=== PATIENT | female | born 1930 | race Caucasian/White ===

== ENCOUNTER 2018-09-24 10:40 | Inpatient (IN) | payer MEDICAID, MEDICARE ==
[~2018-09-24] VITALS: Ht 160 cm; Wt 80.3 kg
[2018-09-24 10:46] VITALS: BP 183/79
--- NOTE | 2018-09-24 10:50 | NUR ---
88 yo f bib family w/ c/o bl neck/lymph node/neck, and entire right sided pain x 5 days. pt reports dizzines, denies n/v today. pt reports feeling very hot on the inside, but does not present w/ fever at this time. no med taken. vss, bed down, bedrail up x 1, er md aware and notified ofpt status. hx high cholestrol, htn rx metropolol 50 mg 1x daily, cipro 500 mg 2x day x 7 days just finished
[2018-09-24] MEDS ORDERED: NACL 0.9% 1,000 ML IV SCH (11:11)
--- NOTE | 2018-09-24 11:13 | NUR ---
Patient being evaluated by physician at bedside.
[2018-09-24] MEDS ORDERED: MORPHINE SULFATE 4 MG/ML SYR IVP ONE (11:15)
[2018-09-24] MEDS ORDERED: CYCLOBENZAPRINE 10 MG TAB PO ONE (11:15)
[2018-09-24 11:45] LABS: BASOPHILS % (AUTO) 0.3 % (0.0-2.0); EOSINOPHILS % (AUTO) 0.3 % (0.0-4.0); HEMATOCRIT 43.7 % (36-48); HEMOGLOBIN 14.3 g/dL (12.0-16.0); LYMPHOCYTES # (AUTO) 1.3 K/uL (2.5-16.5); LYMPHOCYTES % (AUTO) 13.3 % (20.5-51.1); MEAN CORPUSCULAR HEMOGLOBIN 31 pg (27-31); MEAN CORPUSCULAR HGB CONC 33 g/dL (33-37); MEAN CORPUSCULAR VOLUME 94.5 fL (80-94); MONOCYTES # (AUTO) 0.7 K/uL (0.8-1.0); MONOCYTES % (AUTO) 6.9 % (1.7-9.3); NEUTROPHILS % (AUTO) 79.2 % (42.2-75.2); PLATELET COUNT (AUTO) 173 K/uL (140-450); RED BLOOD CELL COUNT(AUTO) 4.62 MIL/uL (4.20-5.40); RED CELL DISTRIBUTION WIDTH 12.7 % (11.6-13.7); WHITE BLOOD COUNT (AUTO) 10.2 K/uL (4.8-10.8)
[2018-09-24 11:51] LABS: ANION GAP 10.1 (8-16); CARBON DIOXIDE 27.5 mmol/L (21-32); CHLORIDE 106 mmol/L (98-107); CREATININE 0.7 mg/dL (0.6-1.3); GLUCOSE 109 mg/dL (74-106); POTASSIUM 3.6 mmol/L (3.5-5.1); SODIUM SERUM 140 mmol/L (136-145); UREA NITROGEN, BLOOD 12 mg/dL (7-18)
[2018-09-24 11:51] LABS: APPEARANCE,URINE CLEAR (CLEAR); BILIRUBIN,URINE NEGATIVE (NEGATIVE); BLOOD, URINE TRACE-I (NEGATIVE); COLOR,URINE YELLOW (YELLOW); LEUKOCYTE ESTERASE ,URINE NEGATIVE (NEGATIVE); NITRITE, URINE NEGATIVE (NEGATIVE); PH,URINE 5.5 (5.0-9.0); UGLUCOSE NEGATIVE (NEGATIVE)
[2018-09-24 11:57] LABS: ALBUMIN 3.4 g/dL (3.4-5.0); ASPARTATE AMINOTRANSFERASE 18 U/L (15-37); TOTAL BILIRUBIN 0.4 mg/dL (0.0-1.0)
[2018-09-24 12:28] LABS: RBC,URINE 0-5 (RARE) /HPF (0-5); WBC,URINE 0-5 (RARE) /HPF (0-5)
[2018-09-24] MEDS ORDERED: ONDANSETRON 4 MG/2 ML VIAL IM/IVP PRN (14:05)
[2018-09-24] MEDS ORDERED: ACETAMINOPHEN 325 MG TAB PO PRN (14:05)
[2018-09-24] MEDS ORDERED: LORazepam 2 MG/ML VIAL IM/IVP PRN (14:05)
[2018-09-24] MEDS ORDERED: ZOLPIDEM 5 MG TAB PO PRN (14:05)
[2018-09-24] MEDS ORDERED: DOCUSATE SODIUM 100 MG GELCAP PO PRN (14:05)
--- NOTE | 2018-09-24 14:43 | NUR ---
Patient will be admitted to care of . Admited to tele floor. Will go to room 120-b. Belongings list completed. Report to radha wilkins.
[2018-09-24 14:58] VITALS: BP 157/64
--- NOTE | 2018-09-24 14:58 | NUR ---
PATIENT ADMITTED FROM ER. PATIENT AWAKE, ALERT AND ORIENTED. PT IS AMBULATORY. NO S/S OF DISTRESS. PATIENT ON ROOM AIR. PATIENT REPORTS OF 3/10 NECK PAIN. PATIENT WAS MEDICATED IN ER. WILL CONTINUE TO MONITOR. NO C/O ABD PAIN AT THIS TIME. NO NAUSEA OR VOMITING. PATIENT PLACED ON TELE MONITORING. BED LOWERED WITH CALL LIGHT WITHIN REACH. WILL CONTINUE TO MONITOR
[2018-09-24] MEDS ORDERED: INSULIN LISPRO SLIDING SCALE 100 UNITS/ML VIAL SUBQ PRN (15:05)
[2018-09-24] MEDS ORDERED: DEXTROSE 50% 50 ML SYR IVP PRN (15:05)
[2018-09-24] MEDS ORDERED: MECLIZINE 25 MG TAB PO PRN (15:20)
[2018-09-24] MEDS ORDERED: METOPROLOL SUCCINATE 50 MG TABER PO SCH (15:27)
--- NOTE | 2018-09-24 15:27 | NUR ---
ORDERED TOPROL XL NOT GIVEN. PER DR MURRAY, PT CAN START HER BP MEDS TOMORROW. DR AWARE OF PATIENT'S LATEST BP
[2018-09-24 15:28] LABS: PHOSPHORUS 3.1 mg/dL (2.5-4.9); THYROID STIMULATING HORMONE 0.32 uIU/mL (0.34-3.74)
[2018-09-24] MEDS ORDERED: METOPROLOL 5 MG/5 ML VIAL IV SCH (15:30)
[2018-09-24] MEDS: NACL 0.9% 1,000 ML IV SCH (15:53)
[2018-09-24] MEDS: BLOOD GLUCOSE MONITORING 1 DEV DEV FS SCH ×2 (15:59→20:04)
[2018-09-24 16:00] VITALS: BP 138/48
--- NOTE | 2018-09-24 18:30 | NUR ---
PATIENT TOLERATED ORDERED DIET WELL. NO S/S OF DISTRESS NOTED
--- NOTE | 2018-09-24 19:27 | NUR ---
PATIENT REPORT GIVEN AT BEDSIDE. PATIENT ENDORSED IN STABLE CONDITION
--- NOTE | 2018-09-24 19:30 | NUR ---
RECEIVED PATIENT AWAKE RESTING ON BED. EXPLAINED PLAN OF CARE TO PATIENT AND FAMILY MEMBERS. CALL LIGHT WITHIN REACH. DENIES PAIN AT THIS TIME. EXPLAINED TO USE CALL LIGHT FOR ASSISTANCE. WILL CONTINUE TO MONITOR.
[2018-09-24] MEDS ORDERED: cloNIDine 0.1 MG TAB PO SCH (21:00)
--- NOTE | 2018-09-24 21:00 | NUR ---
BS TAKEN AND RECORDED. NO COVERAGE PER SLIDING SCALE. NO S/ S OF DISTRESS NOTED. CALL LIGHT WITHION REACH. WILL CONTINUE TO MONITOR.
[2018-09-24 21:15] VITALS: BP 138/63
[2018-09-25] VITALS: BP 147/60
--- NOTE | 2018-09-25 | NUR ---
V/S TAKEN AND RECORDED. PATIENT BACK TO SLEEP AND PLACE IN COMFORTABLE POSITION. ALL NEEDS ATTENDED. NO S/S OF DISTRESS NOTED. WILL CONTINUE TO MONITOR.
--- NOTE | 2018-09-25 02:00 | NUR ---
CHECKED PATIENT ASLEEP IN COMFORTABLE POSITION. NO S/S OF DISTRESS NOTED. CALL LIGHT WITHIN REACH. DENIES PAIN AT THIS TIME. WILL CONTINUE TO MONITOR.
[2018-09-25 04:00] VITALS: BP 143/64
--- NOTE | 2018-09-25 04:00 | NUR ---
V/S TAKEN AND RECORDED. NO S/S OF DISTRESS NOTED AT THIS TIME.CALL LIGHT WITHIN REACH.
[2018-09-25] MEDS: NACL 0.9% 1,000 ML IV SCH ×2 (06:42→22:14)
[2018-09-25] MEDS: BLOOD GLUCOSE MONITORING 1 DEV DEV FS SCH ×4 (06:43→20:03)
--- NOTE | 2018-09-25 07:25 | NUR ---
ENDORSEMENT GIVEN TO AM SHIFT NURSE AT BEDSIDE FOR CONTINUITY OF CARE. PATIENT IN STABLE CONDITION.
--- NOTE | 2018-09-25 07:26 | NUR ---
RECEIVED REPORT FROM PM NURSE AT BEDSIDE. PT LYING ON HER BED. PT AO X4, PRIMARILY SLOVAK SPEAKING. PT IS ON CCHO 60 GM DIET, HAS SMALL WOUND ON LEFT LEFT SANDOVAL. HAS IV ON LFT AC 22 G, IVF INFUSING WELL. PT IS ON FALL RISK, CAN AMBULATE TO RESTROOM WITH ASSIST. PLACED CALLLIGHT WITHIN PT REACH. ABDOMEN SOFT,NON-DISTENDED. PT COMPLAIN OF PAIN AT THE BACK OF NECK. NO SIGN OF DISTRESS NOTED. WILL CONTINUE TO MONITOR PT.
[2018-09-25 07:27] LABS: CHOL/HDL RATIO 3.3 (1-4.5)
[2018-09-25 08:05] VITALS: BP 161/74
[2018-09-25] MEDS: METOPROLOL SUCCINATE 50 MG TABER PO SCH (09:00)
[2018-09-25] MEDS: CYCLOBENZAPRINE 10 MG TAB PO SCH ×3 (09:00→17:21)
--- NOTE | 2018-09-25 09:05 | NUR ---
ADMINISTERED MEDS TO PT ORDERED. TOLERATED WELL. NO SIGN OF DISTRESS. PT RETURNED FROM X-RAY. INFORMED PT THAT MEDS WILL HELP WITH HER NECK PAIN. CALL LIGHT WITHIN PT REACH. INFORMED HER TO USE CALL LIGHT FOR ANY HELP. WILL CONTINUE TO MONITOR PT.
[2018-09-25 09:17] LABS: BASOPHILS % (AUTO) 0.3 % (0.0-2.0); EOSINOPHILS # (AUTO) 0.1 K/uL (0-0.4); HEMATOCRIT 42.1 % (36-48); HEMOGLOBIN 13.8 g/dL (12.0-16.0); LYMPHOCYTES # (AUTO) 1.5 K/uL (2.5-16.5); LYMPHOCYTES % (AUTO) 17.2 % (20.5-51.1); MEAN CORPUSCULAR HEMOGLOBIN 31 pg (27-31); MEAN CORPUSCULAR HGB CONC 33 g/dL (33-37); MEAN CORPUSCULAR VOLUME 94.2 fL (80-94); MONOCYTES # (AUTO) 0.6 K/uL (0.8-1.0); NEUTROPHILS # (AUTO) 6.4 K/uL (1.8-7.7); NEUTROPHILS % (AUTO) 74.5 % (42.2-75.2); PLATELET COUNT (AUTO) 169 K/uL (140-450); RED BLOOD CELL COUNT(AUTO) 4.47 MIL/uL (4.20-5.40); RED CELL DISTRIBUTION WIDTH 12.9 % (11.6-13.7); WHITE BLOOD COUNT (AUTO) 8.6 K/uL (4.8-10.8)
[2018-09-25 09:52] LABS: ANION GAP 13.6 (8-16); CARBON DIOXIDE 26.2 mmol/L (21-32); CHLORIDE 107 mmol/L (98-107); CREATININE 0.7 mg/dL (0.6-1.3); GLUCOSE 102 mg/dL (74-106); MAGNESIUM 1.9 mg/dL (1.8-2.4); PHOSPHORUS 2.8 mg/dL (2.5-4.9); POTASSIUM 3.8 mmol/L (3.5-5.1); SODIUM SERUM 143 mmol/L (136-145); UREA NITROGEN, BLOOD 9 mg/dL (7-18)
--- NOTE | 2018-09-25 10:15 | NUR ---
FAMILY MEMBER SISTER AT BEDSIDE. UPDATED HER ABOUT PT STATUS. GOT PTS DAUGHTER PH# [phone], WHO LIVES IN [facility]. INFORMED SISTER TO LET PT KNOW TO USE CALL LIGHT FOR ANY HELP PTB IS PRIMARILY GERMAN SPEAKING. BED ALARM ON. PT WITH PT, STATES TO HAVE WEAK GAIT R/T GENERALIZED WEAKNESS. CALL LIGHT WITHIN PT REACH. WILL CONTINUE TO MONITOR PT.
[2018-09-25 12:00] VITALS: BP 172/77
[2018-09-25] MEDS: HYDROcodone/APAP 5/325 MG 1 TAB TAB PO PRN (12:11)
--- NOTE | 2018-09-25 12:13 | NUR ---
CHECKED ON PT. VS RECORDED. PT COMPLAINING OF NECK PAIN 10. HAS BP 172/77. MD NOTIFIED. STATES WAITING ON XRAY REPORT. ADVISED TO ADMINISTER NORCO FOR PAIN. ADMINISTERED NORCO . INFORMED HET THAT WILL REASSESS PAIN IN HOUR. FAMILY AT BEDSIDE. WILL CONTINUE TO MONITOR PT.
[2018-09-25 16:00] VITALS: BP 126/69
--- NOTE | 2018-09-25 17:22 | NUR ---
ADMINISTERED MEDS TO PT ORDERED. TOLERATED WELL. PT DENIES ANY PAIN. NO SIGN OF DISTRESS. WILL CONTINUE TO MONITOR PT.
--- NOTE | 2018-09-25 19:20 | NUR ---
ENDORSED PT TO PM NURSE AT BEDSIDE. PT GRANDDAUGHTER AT BEDSIDE. PT STABLE .
--- NOTE | 2018-09-25 19:21 | NUR ---
RECEIVED PATIENT AWAKE RESTING ON BED WITH FAMILY MEMBERS. EXPLAINED TO PATIENT AND FAMILY MEMBER PLAN OF CARE AND VERBALIZED UNDERSTANDING. FALL PRECAUTION APPLIED. CALL LIGHTS WITHIN REACH. WILL CONTINUE TO MONITOR.
[2018-09-25 20:00] VITALS: BP 139/64
--- NOTE | 2018-09-25 20:00 | NUR ---
V/S TAKEN AND RECORDED.
--- NOTE | 2018-09-25 21:00 | NUR ---
BS TAKEN AND RECORDED. NO COVERAGE PER SLIDING SCALE. DENIES PAIN AT THIS TIME. NO S/S OF DISTRESS NOTED AT THIS TIME. WILL CONTINUE TO MONITOR.
--- NOTE | 2018-09-25 22:00 | NUR ---
REPOSITIONED PATIENT AND PLACE IN COMFORTABLE POSITION. SNACK GIVEN . ALL NEEDS ATTENDED.
[2018-09-26] VITALS: BP 160/79
--- NOTE | 2018-09-26 | NUR ---
V/ S TAKEN AND RECORDED.ALL NEEDS ATTENDED. CALL LIGHT WITHIN REACH. NO S/S OF DISTRESS NOTED. WILL CONTINUE TO MONITOR.
[2018-09-26 04:00] VITALS: BP 130/80
--- NOTE | 2018-09-26 06:03 | NUR ---
PATIENT HAS BEEN SCREENED AND CATEGORIZED MODERATE NUTRITION RISK. PATIENT WILL BE SEEN WITHIN 3-5 DAYS OF ADMISSION. 09/27/18-09/29/18 NANCY CADET MS, RDN
[2018-09-26] MEDS: HYDROcodone/APAP 5/325 MG 1 TAB TAB PO PRN (06:04)
[2018-09-26 06:10] LABS: T4 (THYROXINE) 6.8 ug/dL (4.5-12.0)
[2018-09-26] MEDS: BLOOD GLUCOSE MONITORING 1 DEV DEV FS SCH ×2 (06:24→11:30)
--- NOTE | 2018-09-26 06:55 | NUR ---
PATIENT REFUSED BLOOD DRAWN PER INVESTIGATION LIEUTENANT.
--- NOTE | 2018-09-26 07:20 | NUR ---
ENDORSEMENT GIVEN TO AM SHIFT RN AT BEDSIDE FOR CONTINUITY OF CARE. PATIENT IN STABLE CONDITION.
--- NOTE | 2018-09-26 07:21 | NUR ---
RECEIVED REPORT FROM TOOL PLANNER NURSE. PATIENT LYING DOWN IN BED COMFORTABLY. NO DISTRESS NOTED. PAIN WITHIN TOLERABLE. AAOX3, CALM, COOPERATIVE, SKIN COLOR APPROPRIATE TO ETHNICITY, WARM TO TOUCH. LEFT SANDOVAL AREA OPEN WOUND NOTED, DRESSING DRY AND INTACT. IV SITE INTACT, PATENT, AND INFUSING IVF PER ORDERS. LUNGS CTA ON ALL LOBES. REVIEWED PLAN OF CARE WITH PATIENT. PATIENT VERBALIZED UNDERSTANDING. SAFETY MEASURES IN PLACE, CALL LIGHT WITHIN REACH. WILL CONTINUE TO MONITOR.
[2018-09-26 08:00] VITALS: BP 174/68
[2018-09-26] MEDS ORDERED: MORPHINE SULFATE 4 MG/ML SYR IVP PRN (08:50)
[2018-09-26] MEDS: METOPROLOL SUCCINATE 50 MG TABER PO SCH (09:07)
[2018-09-26] MEDS: CYCLOBENZAPRINE 10 MG TAB PO SCH ×2 (09:07→13:06)
--- NOTE | 2018-09-26 09:10 | NUR ---
SCHEDULED MEDS DUE GIVEN. NO DISTRESS NOTED. WILL CONTINUE TO MONITOR.
--- NOTE | 2018-09-26 11:30 | NUR ---
PATIENT LYING DOWN IN BED SLEEPING, AROUSABLE BY VOICE. NO DISTRESS NOTED. WILL CONTINUE TO MONITOR.
--- NOTE | 2018-09-26 13:10 | NUR ---
SCHEDULED MEDS GIVEN. NO DISTRESS NOTED. FAMILY MEMBERS AT BEDSIDE. WILL CONTINUE TO MONITOR.
[2018-09-26 13:23] VITALS: BP 162/70
[2018-09-26] MEDS ORDERED: LYR75 PO (14:08)
[2018-09-26] MEDS ORDERED: METO50TE2 PO (14:08)
[2018-09-26] MEDS ORDERED: BACL10TA4 PO (14:08)
[2018-09-26] MEDS ORDERED: LISI5TAB18 PO (14:39)
[2018-09-26] MEDS ORDERED: LISINOPRIL 5 MG TAB PO SCH (15:00)
--- NOTE | 2018-09-26 15:00 | NUR ---
DISCHARGE INSTRUCTIONS PROVIDED TO PATIENT/FAMILY AT BEDSIDE IN PREFERRED LANGUAGE OF [place] USING TRANSLATION PHONE WITH COLD PRESS LOADER BENSON #[id number]. INSTRUCTIONS ON NEW/CHANGED MEDICATION REGIMEN PROVIDED, DIET REGIMEN, ACTIVITY POST DISCHARGE AND MANAGEMENT OF HIGH BLOOD PRESSURE. ANSWERED ALL OF PATIENT/FAMILY QUESTIONS REGARDING DISCHARGE. PATIENT/FAMILY VERBALIZED COMPLETE UNDERSTANDING. BLOOD PRESSURE MEDICATION JUST GIVEN TO PATIENT AT THIS TIME DUE TO HIGH BP. AWAITING FOR BP RECHECK IN 1 HOUR BEFORE SENDING PATIENT HOME PER MD ORDERS. WILL CONTINUE TO MONITOR.
--- NOTE | 2018-09-26 16:00 | NUR ---
BP RECHECKED AND WAS 148:72, PULSE 80. NOTIFIED DR. MURRAY, PATIENT OK TO GO HOME PER MD. IV SITE REMOVED WITH MINIMAL BLOOD AND LUMEN COMPLETELY INTACT. ID BANDS REMOVED. PATIENT ALREADY DRESSED AND READY TO GO HOME. ESCORTED PATIENT DOWN TO LOBBY VIA WHEELCHAIR. PATIENT DISCHARGED TO HOME IN A PRIVATE VEHICLE AT THIS TIME IN STABLE CONDITION.
--- NOTE | 2018-09-28 08:12 | NUR ---
WOUND CARE CONSULT NOT DONE, PT. DISCHARGED.
== END 2018-09-26 16:00 | disposition home or self-care (01) | DRG 282 ==
LOC: MED 10:40 → MTU 14:05
PROVIDERS: ADMIT General Practice; ATTEND General Practice
DX: K85.90 Acute pancreatitis without necrosis or infection, unspecified (principal); D68.59 Other primary thrombophilia; E11.65 Type 2 diabetes mellitus with hyperglycemia; G90.9 Disorder of the autonomic nervous system, unspecified; E11.69 Type 2 diabetes mellitus with other specified complication; K76.0 Fatty (change of) liver, not elsewhere classified; E78.00 Pure hypercholesterolemia, unspecified; E66.9 Obesity, unspecified; M62.838 Other muscle spasm; E78.5 Hyperlipidemia, unspecified; I10 Essential (primary) hypertension; Z68.31 Body mass index [BMI] 31.0-31.9, adult
CPT/HCPCS: 36415; 70450; 71045; 72050; 76705; 80048; 80053; 81001; 82140; 82150; 82948; 83036; 83605; 83690; 83735; 83880; 84100; 84436; 84443; 84484; 85025; 85610; 85730; 87040; 87081; 87086; 93005; 93880; 93925; 93970; 96361; 96374; 97116; 97530; 99285; J1815; J2270; J7030; Q0092